=== PATIENT | male | born 1990 | race Two or more races ===

== ENCOUNTER 2017-01-15 23:26 | Emergency (ER) | payer BC, OTHER ==
[~2017-01-15] VITALS: Ht 177.8 cm; Wt 77.1 kg
[2017-01-15] MEDS ORDERED: ACETAMINOPHEN 325 MG TABLET ONE (23:57)
[2017-01-16] MEDS ORDERED: ASPIRIN 325 MG TABLET PO ONE (00:30)
[2017-01-16] MEDS ORDERED: ACETAMINOPHEN 325 MG TABLET PO ONE (00:30)
[2017-01-16 00:50] VITALS: BP 130/68
== END 2017-01-16 00:51 | disposition home or self-care (01) ==
LOC: ER 23:28
DX: F41.9 Anxiety disorder, unspecified (principal)
CPT/HCPCS: 99284; A4606; Z7610